=== PATIENT | female | born 1945 | race Caucasian/White ===

== ENCOUNTER 2020-04-20 09:03 | Outpatient (CLI) | payer MEDICARE, SELFPAY ==
[2020-04-20 09:58] LABS: Alanine Aminotransferase 15 U/L (4-35); Albumin Level 4.3 g/dL (3.5-5.1); Alkaline Phosphatase 92 U/L (38-126); Aspartate Amino Transferase 23 U/L (14-36); Bilirubin,Total 0.3 mg/dL (0.2-1.3); Blood Urea Nitrogen 35 mg/dL (7-17); Calcium 9.1 mg/dL (8.4-10.2); Carbon Dioxide 27 mmol/L (22-30); Chloride 105 mmol/L (98-107); Cholesterol 179 mg/dL (0-200); Estimated Glomerular Filt Rate 44; Glucose 124 mg/dL (65-105); HDL Direct 24 mg/dL; Potassium 4.4 mmol/L (3.4-5.0); Sodium 140 mmol/L (137-145); Triglycerides 248 mg/dL (<150)
[2020-04-20 10:08] LABS: LDL Cholesterol Direct 96 mg/dL
[2020-04-20 19:12] LABS: Hemoglobin A1C 5.8 % (<5.7)
[2020-04-20 19:59] LABS: Total Triiodothyronine (T3) 1.15 NG/ML (0.97-1.69)
[2020-04-23 03:43] LABS: Triiodothyronine T3 Free 2.6 pg/mL (2.3-4.2)
== END 2020-04-20 09:04 | disposition home or self-care (01) ==
PROVIDERS: PCP Family Medicine; Visit Provider Family Medicine
DX: E03.9 Hypothyroidism, unspecified (principal); E78.2 Mixed hyperlipidemia; I10 Essential (primary) hypertension; R73.09 Other abnormal glucose
CPT/HCPCS: 36415; 80053; 80061; 83036; 84436; 84443; 84480; 84481

== ENCOUNTER 2021-01-27 08:36 | Outpatient (CLI) | payer MEDICARE, SELFPAY ==
[2021-01-27 09:52] LABS: Alanine Aminotransferase 16 U/L (4-35); Albumin Level 4.4 g/dL (3.5-5.1); Alkaline Phosphatase 69 U/L (38-126); Anion Gap 8 mmol/L (8-16); Aspartate Amino Transferase 29 U/L (14-36); Bilirubin,Total 0.6 mg/dL (0.2-1.3); Blood Urea Nitrogen 39 mg/dL (7-17); Calcium 9.6 mg/dL (8.4-10.2); Carbon Dioxide 27 mmol/L (22-30); Chloride 106 mmol/L (98-107); Cholesterol 179 mg/dL (0-200); Estimated Glomerular Filt Rate 54; Glucose 125 mg/dL (65-105); HDL Direct 34 mg/dL; Potassium 5.2 mmol/L (3.4-5.0); Sodium 141 mmol/L (137-145); Triglycerides 170 mg/dL (<150)
[2021-01-27 10:02] LABS: LDL Cholesterol Direct 95 mg/dL
[2021-01-27 10:35] LABS: Free T4 Free Thyroxine 1.43 ng/mL (0.78-2.19)
== END 2021-01-27 08:37 | disposition home or self-care (01) ==
PROVIDERS: PCP Family Medicine; Visit Provider Family Medicine
DX: E03.9 Hypothyroidism, unspecified (principal); E78.2 Mixed hyperlipidemia; I10 Essential (primary) hypertension
CPT/HCPCS: 36415; 80053; 80061; 84439; 84443

== ENCOUNTER 2021-03-19 14:46 | Outpatient (CLI) | payer MEDICARE, SELFPAY ==
[2021-03-19 15:57] LABS: Anion Gap 5 mmol/L (8-16); Blood Urea Nitrogen 24 mg/dL (7-17); Calcium 9.7 mg/dL (8.4-10.2); Carbon Dioxide 33 mmol/L (22-30); Chloride 104 mmol/L (98-107); Estimated Glomerular Filt Rate 54; Glucose 155 mg/dL (65-105); Potassium 3.9 mmol/L (3.4-5.0); Sodium 142 mmol/L (137-145)
== END 2021-03-19 14:47 | disposition home or self-care (01) ==
PROVIDERS: PCP Family Medicine; Visit Provider Family Medicine
DX: I10 Essential (primary) hypertension (principal)
CPT/HCPCS: 36415; 80048

== ENCOUNTER 2021-08-16 10:08 | Outpatient (CLI) | payer MEDICARE, SELFPAY ==
[2021-08-16 10:31] LABS: Basophils Percent Auto 0.6 % (0.2-1.2); Eosinophils Absolute Auto 0.2 K/mm3 (0-0.3); Eosinophils Percent Auto 2.6 % (0-4.4); Hematocrit 34.8 % (37.0-47.0); Hemoglobin 11.4 g/dL (12.0-15.0); Immature Granulocyte Absolute 0.03 K/mm3 (0.00-0.031); Immature Granulocyte Percent A 0.4 % (0-0.5); Lymphocytes Percent Auto 21.6 % (18.3-44.2); Mean Corpuscular HGB Conc 32.8 g/dl (32-36); Mean Corpuscular Hemoglobin 30.2 pg (26-34); Mean Corpuscular Volume 92.1 fl (80-100); Mean Platelet Volume 9.3 fl (7.4-10.4); Monocytes Absolute Auto 0.4 K/mm3 (0.1-0.6); Monocytes Percent Auto 5.3 % (2.6-8.5); Neutrophils Absolute Auto 4.8 K/mm3 (1.3-6.7); Neutrophils Percent Auto 69.5 % (45.5-73.1); Platelet Count Result 213 k/mm3 (150-375); Red Blood Count 3.78 M/mm3 (4.2-5.4); Red Cell Distribution Width 15.7 % (11.5-14.5)
[2021-08-16 10:59] LABS: Hemoglobin A1C 5.5 % (<5.7)
[2021-08-16 11:29] LABS: Alanine Aminotransferase 16 U/L (4-35); Albumin Level 4.4 g/dL (3.5-5.1); Alkaline Phosphatase 85 U/L (38-126); Anion Gap 11 mmol/L (8-16); Aspartate Amino Transferase 26 U/L (14-36); Bilirubin,Total 0.6 mg/dL (0.2-1.3); Blood Urea Nitrogen 35 mg/dL (7-17); Calcium 9.6 mg/dL (8.4-10.2); Carbon Dioxide 26 mmol/L (22-30); Chloride 105 mmol/L (98-107); Cholesterol 181 mg/dL (0-200); Estimated Glomerular Filt Rate 40; Glucose 123 mg/dL (65-110); HDL Direct 25 mg/dL; Potassium 5.4 mmol/L (3.4-5.0); Sodium 142 mmol/L (137-145); Triglycerides 275 mg/dL (<150); Uric Acid 2.6 mg/dL (2.5-7.5)
[2021-08-16 11:32] LABS: LDL Cholesterol Direct 80 mg/dL
== END 2021-08-16 10:09 | disposition home or self-care (01) ==
LOC: ANHLAB 10:11
PROVIDERS: PCP Family Medicine; Visit Provider Family Medicine
DX: I10 Essential (primary) hypertension (principal); R73.09 Other abnormal glucose; E03.9 Hypothyroidism, unspecified; E78.2 Mixed hyperlipidemia; E79.0 Hyperuricemia without signs of inflammatory arthritis and tophaceous disease
CPT/HCPCS: 36415; 80053; 80061; 83036; 84443; 84550; 85025

== ENCOUNTER → 2021-09-19 15:15 | Outpatient (CLI) | payer MEDICARE, SELFPAY ==
--- NOTE | ~2021-09-19 | MM_ITS ---
EXAMINATION: MM screening laura BI w an HISTORY: Screening mammogram TECHNIQUE: Craniocaudal and mediolateral oblique 3-D tomosynthesis images were obtained and synthetic 2-D images were generated. CAD analysis was submitted and interpreted. COMPARISON: BREAST PARENCHYMAL COMPOSITION: The breasts are almost entirely fatty. FINDINGS: There is no evidence of suspicious mass, calcification, or architectural distortion to sugg est malignancy in either breast. There has been no suspicious interval change. IMPRESSION: 1. No mammographic evidence of malignancy. 2. Recommend routine screening mammography in one year. BI-RADS Category 1: Negative Reviewed, dictated and finalized at location A.
== END ==
PROVIDERS: PCP Family Medicine; Visit Provider Family Medicine
DX: Z12.31 Encounter for screening mammogram for malignant neoplasm of breast (principal)
CPT/HCPCS: 77063; 77067

== ENCOUNTER → 2021-10-11 13:10 | Outpatient (CLI) | payer MEDICARE, SELFPAY ==
--- NOTE | ~2021-10-11 | DEXA_ITS ---
Bone Density Report Name: Briseida Palencia Age: 76 Sex: Female Ethnicity: White Date of : 1945 Indication: postmenopausal; screening for osteoporosis; Referring Provider: WALESKA SALINAS Study: Bone densitometry was performed. Exam Date: October 11, 2021 Accession number: [id number] Bone Density: Region BMD T-score Z-score Classification AP Spine (L2, L3, L4) 1.068 -0.1 2.3 Normal Femoral Neck (Left) 0.713 -1.2 0.8 Osteopenia Total Hip (Left) 0.856 -0.7 1.0 Normal Femoral Neck (Right) 0.774 -0.7 1.4 Normal Total Hip (Right) 0.887 -0.4 1.3 Normal Total Hip Mean 0.872 -0.6 1.2 Normal World Health Organization criteria for BMD impression classify patients as: Normal (T-score at or above -1.0), Osteopenia (T-score between -1.0 and -2.5), or Osteoporosis (T-score at or below -2.5). 10-year Fracture Risk(1): Major Osteoporotic Fracture 9.1% Hip Fracture 1.4% Reported Risk Factors: [place] (), Neck BMD=0.713, BMI=39.1 (1) FRAX(R) Version 3.08. Fracture probability calculated for an untreated patient. Fracture probability may be lower if the patient has received treatment. Previous Exams: Region Exam Age BMD T-score BMD Change BMD Change Date g/cm2 vs Baseline vs Previous AP Spine(L2, L3, L4) 10/11/2021 76 1.068 -0.1 0.011 0.011 03/12/2019 73 1.057 -0.2 Total Hip(Left) 10/11/2021 76 0.856 -0.7 -0.004 -0.004 03/12/2019 73 0.860 -0.7 Total Hip(Right) 10/11/2021 76 0.887 -0.4 0.044* 0.044* 03/12/2019 73 0.844 -0.8 *Denotes significance at 95% confidence level, LSC for AP Spine = 0.022 g/cm2, LSC for Total Hip = 0.027 g/cm2 Clinical Information Provided by Patient: Has used the following medications: Vitamin D, Calcium, MTV, Levothyroxine Patient maximum height was 62.5 Menopause Age: 54 No regular weight bearing exercise Drinks caffeinated beverages Onset of menses at age 15 Number of children 2 Impression: The patient has low bone mass, based on the Left Femoral Neck T-score. The patient has an estimated ten-year risk of hip fracture of 1.4% and an estimated ten-year risk of major fracture of 9.1%, based on the WHO FRAX algorithm. No significant bone loss was observed. Discussion: BONE DENSITY IS LOW AT ONE OR MORE SKELETAL SITES. This patient's lowest T-score is low at one or more skeletal sites. It meets the World Health Organization's
== END ==
PROVIDERS: PCP Family Medicine; Visit Provider Family Medicine
DX: Z78.0 Asymptomatic menopausal state (principal); M85.852 Other specified disorders of bone density and structure, left thigh
CPT/HCPCS: 77080

== ENCOUNTER 2021-11-02 11:39 | Outpatient (CLI) | payer MEDICARE, SELFPAY ==
[2021-11-02 12:00] LABS: Basophils Absolute Auto 0.1 K/mm3 (0.0-0.1); Basophils Percent Auto 0.7 % (0.2-1.2); Eosinophils Absolute Auto 0.3 K/mm3 (0-0.3); Eosinophils Percent Auto 3.4 % (0-4.4); Hematocrit 34.1 % (37.0-47.0); Hemoglobin 11.3 g/dL (12.0-15.0); Immature Granulocyte Absolute 0.02 K/mm3 (0.00-0.031); Immature Granulocyte Percent A 0.2 % (0-0.5); Lymphocytes Percent Auto 20.3 % (18.3-44.2); Mean Corpuscular HGB Conc 33.1 g/dl (32-36); Mean Corpuscular Hemoglobin 29.7 pg (26-34); Mean Corpuscular Volume 89.5 fl (80-100); Mean Platelet Volume 9.7 fl (7.4-10.4); Monocytes Absolute Auto 0.6 K/mm3 (0.1-0.6); Monocytes Percent Auto 6.2 % (2.6-8.5); Neutrophils Absolute Auto 6.1 K/mm3 (1.3-6.7); Neutrophils Percent Auto 69.2 % (45.5-73.1); Platelet Count Result 209 k/mm3 (150-375); Red Blood Count 3.81 M/mm3 (4.2-5.4); Red Cell Distribution Width 15.4 % (11.5-14.5); White Blood Count 8.9 K/mm3 (4.5-10.0)
[2021-11-02 12:14] LABS: Alanine Aminotransferase 15 U/L (4-35); Albumin Level 4.2 g/dL (3.5-5.1); Alkaline Phosphatase 80 U/L (38-126); Anion Gap 9 mmol/L (8-16); Aspartate Amino Transferase 24 U/L (14-36); Bilirubin,Total 0.4 mg/dL (0.2-1.3); Blood Urea Nitrogen 33 mg/dL (7-17); Calcium 9.9 mg/dL (8.4-10.2); Carbon Dioxide 26 mmol/L (22-30); Chloride 104 mmol/L (98-107); Estimated Glomerular Filt Rate 37; Glucose 101 mg/dL (65-110); Potassium 5.3 mmol/L (3.4-5.0); Sodium 139 mmol/L (137-145)
== END 2021-11-02 11:40 | disposition home or self-care (01) ==
LOC: ANHLAB 11:41
PROVIDERS: PCP Family Medicine; Visit Provider Nurse Practitioner Gerontology
DX: E87.5 Hyperkalemia (principal); D64.9 Anemia, unspecified
CPT/HCPCS: 36415; 80053; 85025

== ENCOUNTER 2022-03-05 15:26 | Outpatient (CLI) | payer MEDICARE, SELFPAY ==
--- NOTE | ~2022-03-05 | US_ITS ---
EXAMINATION: US renal BI DATE: 03/05/2022 16:02 INDICATION: Stage IIIb chronic kidney disease TECHNIQUE: Multiple ultrasound grayscale images of the kidneys were obtained. COMPARISON: None. FINDINGS: The right kidney measures 9.9 x 5.2 x 4.3 cm. The left kidney measures 10.4 x 4.1 x 3.9 cm. The kidne ys demonstrate normal echogenicity. There is no hydronephrosis in either kidney. No stones identifie d. The bladder is normal. IMPRESSION: 1. Normal kidneys without hydronephrosis. Reviewed, dictated and finalized at location B.
== END 2022-03-05 15:27 | disposition home or self-care (01) ==
LOC: ANHIMG 15:26
PROVIDERS: PCP Family Medicine; Visit Provider Family Medicine
DX: N18.32 Chronic kidney disease, stage 3b (principal)
CPT/HCPCS: 76775

== ENCOUNTER 2022-06-28 10:12 | Outpatient (CLI) | payer MEDICARE, SELFPAY ==
[2022-06-28 11:11] LABS: Basophils Percent Auto 0.6 % (0.2-1.2); Eosinophils Absolute Auto 0.2 K/mm3 (0-0.3); Eosinophils Percent Auto 3.5 % (0-4.4); Hematocrit 34.8 % (37.0-47.0); Hemoglobin 11.4 g/dL (12.0-15.0); Immature Granulocyte Absolute 0.02 K/mm3 (0.00-0.031); Immature Granulocyte Percent A 0.3 % (0-0.5); Lymphocytes Absolute Auto 1.44 K/mm3 (0.9-3.2); Mean Corpuscular HGB Conc 32.8 g/dl (32-36); Mean Corpuscular Hemoglobin 29.8 pg (26-34); Mean Corpuscular Volume 90.9 fl (80-100); Mean Platelet Volume 10.1 fl (7.4-10.4); Monocytes Absolute Auto 0.4 K/mm3 (0.1-0.6); Monocytes Percent Auto 5.4 % (2.6-8.5); Neutrophils Absolute Auto 4.8 K/mm3 (1.3-6.7); Neutrophils Percent Auto 69.2 % (45.5-73.1); Platelet Count Result 170 k/mm3 (150-375); Red Blood Count 3.83 M/mm3 (4.2-5.4); Red Cell Distribution Width 15.4 % (11.5-14.5); White Blood Count 6.9 K/mm3 (4.5-10.0)
[2022-06-28 11:22] LABS: Alanine Aminotransferase 14 U/L (6-35); Albumin Level 4.3 g/dL (3.5-5.1); Alkaline Phosphatase 92 U/L (38-126); Anion Gap 11 mmol/L (8-16); Aspartate Amino Transferase 19 U/L (14-36); Bilirubin,Total 0.6 mg/dL (0.2-1.3); Blood Urea Nitrogen 41 mg/dL (7-17); Calcium 9.7 mg/dL (8.4-10.2); Carbon Dioxide 24 mmol/L (22-30); Chloride 105 mmol/L (98-107); Cholesterol 178 mg/dL (0-200); Estimated Glomerular Filt Rate 37; Glucose 121 mg/dL (65-110); HDL Direct 28 mg/dL; Potassium 4.4 mmol/L (3.4-5.0); Sodium 140 mmol/L (137-145); Triglycerides 229 mg/dL (<150); Uric Acid 2.9 mg/dL (2.5-7.5)
[2022-06-28 11:27] LABS: Hemoglobin A1C 5.4 % (<5.7)
[2022-06-28 11:32] LABS: LDL Cholesterol Direct 86 mg/dL
[2022-06-28 11:44] LABS: Free T4 Free Thyroxine 1.47 ng/mL (0.78-2.19)
[2022-06-28 11:53] LABS: Total Triiodothyronine (T3) 1.09 NG/ML (0.97-1.69)
[2022-07-02 16:14] LABS: Vitamin D 1,25 (OH)2 Total 10 pg/mL (18-72); Vitamin D2 1,25 (OH)2 <8 pg/mL; Vitamin D3 1,25 (OH)2 10 pg/mL
== END 2022-06-28 10:13 | disposition home or self-care (01) ==
LOC: ANHLAB 10:15
PROVIDERS: PCP Family Medicine; Visit Provider Family Medicine
DX: E55.9 Vitamin D deficiency, unspecified (principal); E03.9 Hypothyroidism, unspecified; E78.2 Mixed hyperlipidemia; R73.09 Other abnormal glucose; E79.0 Hyperuricemia without signs of inflammatory arthritis and tophaceous disease; I10 Essential (primary) hypertension
CPT/HCPCS: 36415; 80053; 80061; 82652; 83036; 84439; 84443; 84480; 84550; 85025

== ENCOUNTER 2022-11-18 10:57 | Outpatient (CLI) | payer MEDICARE, SELFPAY ==
[2022-11-18 12:01] LABS: Basophils Percent Auto 0.6 % (0.2-1.2); Eosinophils Absolute Auto 0.3 K/mm3 (0-0.3); Eosinophils Percent Auto 3.9 % (0-4.4); Hematocrit 37.8 % (37.0-47.0); Hemoglobin 12.5 g/dL (12.0-15.0); Immature Granulocyte Absolute 0.02 K/mm3 (0.00-0.031); Immature Granulocyte Percent A 0.3 % (0-0.5); Lymphocytes Absolute Auto 1.72 K/mm3 (0.9-3.2); Lymphocytes Percent Auto 24.9 % (18.3-44.2); Mean Corpuscular HGB Conc 33.1 g/dl (32-36); Mean Corpuscular Hemoglobin 30.1 pg (26-34); Mean Corpuscular Volume 91.1 fl (80-100); Mean Platelet Volume 10.1 fl (7.4-10.4); Monocytes Absolute Auto 0.4 K/mm3 (0.1-0.6); Monocytes Percent Auto 5.5 % (2.6-8.5); Neutrophils Absolute Auto 4.5 K/mm3 (1.3-6.7); Neutrophils Percent Auto 64.8 % (45.5-73.1); Platelet Count Result 218 k/mm3 (150-375); Red Blood Count 4.15 M/mm3 (4.2-5.4); Red Cell Distribution Width 14.6 % (11.5-14.5); White Blood Count 6.9 K/mm3 (4.5-10.0)
[2022-11-18 12:13] LABS: Alanine Aminotransferase 18 U/L (6-35); Albumin Level 4.5 g/dL (3.5-5.1); Alkaline Phosphatase 108 U/L (38-126); Anion Gap 8 mmol/L (8-16); Aspartate Amino Transferase 24 U/L (14-36); Bilirubin,Total 0.6 mg/dL (0.2-1.3); Blood Urea Nitrogen 28 mg/dL (7-17); Calcium 9.4 mg/dL (8.4-10.2); Carbon Dioxide 28 mmol/L (22-30); Chloride 105 mmol/L (98-107); Cholesterol 207 mg/dL (0-200); Estimated Glomerular Filt Rate 54; Glucose 120 mg/dL (65-110); HDL Direct 31 mg/dL; Sodium 141 mmol/L (137-145); Triglycerides 236 mg/dL (<150)
[2022-11-18 12:24] LABS: LDL Cholesterol Direct 104 mg/dL
[2022-11-18 12:51] LABS: Total Triiodothyronine (T3) 1.05 NG/ML (0.97-1.69)
[2022-11-22 09:59] LABS: Vitamin D 1,25 (OH)2 Total 28 pg/mL (18-72); Vitamin D2 1,25 (OH)2 <8 pg/mL; Vitamin D3 1,25 (OH)2 28 pg/mL
== END 2022-11-18 10:58 | disposition home or self-care (01) ==
LOC: ANHLAB 10:59
PROVIDERS: PCP Family Medicine; Visit Provider Family Medicine
DX: E03.9 Hypothyroidism, unspecified (principal); E78.2 Mixed hyperlipidemia; I10 Essential (primary) hypertension; E55.9 Vitamin D deficiency, unspecified
CPT/HCPCS: 36415; 80053; 80061; 82652; 84439; 84443; 84480; 85025

== ENCOUNTER 2023-06-11 10:00 | Outpatient (CLI) | payer MEDICARE, SELFPAY ==
[2023-06-11 10:40] LABS: Basophils Percent Auto 0.4 % (0.2-1.2); Eosinophils Absolute Auto 0.2 K/mm3 (0-0.3); Eosinophils Percent Auto 3.4 % (0-4.4); Hematocrit 35.2 % (37.0-47.0); Hemoglobin 11.5 g/dL (12.0-15.0); Immature Granulocyte Absolute 0.02 K/mm3 (0.00-0.031); Immature Granulocyte Percent A 0.3 % (0-0.5); Lymphocytes Percent Auto 22.1 % (18.3-44.2); Mean Corpuscular HGB Conc 32.7 g/dl (32-36); Mean Corpuscular Hemoglobin 30.6 pg (26-34); Mean Corpuscular Volume 93.6 fl (80-100); Mean Platelet Volume 10.3 fl (7.4-10.4); Monocytes Absolute Auto 0.4 K/mm3 (0.1-0.6); Monocytes Percent Auto 5.4 % (2.6-8.5); Neutrophils Absolute Auto 4.6 K/mm3 (1.3-6.7); Neutrophils Percent Auto 68.4 % (45.5-73.1); Platelet Count Result 183 k/mm3 (150-375); Red Blood Count 3.76 M/mm3 (4.2-5.4); Red Cell Distribution Width 14.9 % (11.5-14.5); White Blood Count 6.8 K/mm3 (4.5-10.0)
[2023-06-11 10:55] LABS: Alanine Aminotransferase 19 U/L (6-35); Albumin Level 4.4 g/dL (3.5-5.1); Alkaline Phosphatase 98 U/L (38-126); Anion Gap 5 mmol/L (8-16); Aspartate Amino Transferase 21 U/L (14-36); Bilirubin,Total 0.5 mg/dL (0.2-1.3); Blood Urea Nitrogen 30 mg/dL (7-17); Calcium 9.5 mg/dL (8.4-10.2); Carbon Dioxide 27 mmol/L (22-30); Chloride 108 mmol/L (98-107); Cholesterol 202 mg/dL (0-200); Estimated Glomerular Filt Rate 54; Glucose 121 mg/dL (65-110); HDL Direct 30 mg/dL; Potassium 4.7 mmol/L (3.4-5.0); Sodium 140 mmol/L (137-145); Triglycerides 238 mg/dL (<150); Uric Acid 2.2 mg/dL (2.5-7.5)
[2023-06-11 11:01] LABS: LDL Cholesterol Direct 96 mg/dL
[2023-06-11 11:02] LABS: Hemoglobin A1C 5.6 % (<5.7)
[2023-06-11 11:21] LABS: Total Triiodothyronine (T3) 1.07 NG/ML (0.97-1.69)
[2023-06-11 11:31] LABS: Free T4 Free Thyroxine 1.48 ng/mL (0.78-2.19)
[2023-06-15 22:19] LABS: Vitamin D 1,25 (OH)2 Total 32 pg/mL (18-72); Vitamin D2 1,25 (OH)2 <8 pg/mL; Vitamin D3 1,25 (OH)2 32 pg/mL
== END 2023-06-11 10:01 | disposition home or self-care (01) ==
PROVIDERS: PCP Family Medicine; Visit Provider Family Medicine
DX: E79.0 Hyperuricemia without signs of inflammatory arthritis and tophaceous disease (principal); E78.2 Mixed hyperlipidemia; R73.09 Other abnormal glucose; I10 Essential (primary) hypertension; E03.9 Hypothyroidism, unspecified; E55.9 Vitamin D deficiency, unspecified
CPT/HCPCS: 36415; 80053; 80061; 82652; 83036; 84439; 84443; 84480; 84550; 85025

== ENCOUNTER 2023-08-12 00:46 | Day surgery (SDC) | payer MEDICARE, SELFPAY ==
[2023-07-30 12:13] VITALS: BMI 40.6
--- NOTE | 2023-08-11 10:00 | WPDANESEPPF ---
Anes - Initial Pre Proc Eval Procedure: Operation Date: 08/12/23 09:00 Proposed Procedures p Colonoscopy - Osei Cuenca MD Date/Time: 08/11/23 10:00 Surgeon: Osei Cuenca MD Pre Op Diagnosis: other fecal abnormalities Patient Data Age: 78 Gender: F Height: 1.56 m Weight: 99 kg Allergies Allergy/AdvReac Type Severity Reaction Status Date / Time alendronate sodium AdvReac Intermediate muscle ache Verified 08/12/23 07:49 liothyronine [From Cytomel] AdvReac Intermediate Diarrhea Verified 08/12/23 07:49 Home Medications Medication Instructions Recorded Confirmed Type metronidazole 0.75 % topical cream 1 applic topical BID #45 grams 06/20/22 07/30/23 Rx lisinopril 40 mg tablet 40 mg PO DAILY #100 tabs 05/24/23 07/30/23 Rx cholecalciferol (vitamin D3) 1,250 1,250 mcg PO WEEKLY #14 caps 05/27/23 07/30/23 Rx mcg (50,000 unit) capsule atorvastatin 10 mg tablet 10 mg PO QHS #30 tabs 06/11/23 07/30/23 Rx amlodipine 5 mg tablet 5 mg PO DAILY #90 tabs 06/19/23 07/30/23 Rx carvedilol 3.125 mg tablet See Rx Instructions .Route 06/19/23 07/30/23 Rx .COMPLEX #180 tabs furosemide 20 mg tablet 20 mg PO QAM #90 tabs 06/19/23 07/30/23 Rx allopurinol 300 mg tablet 300 mg PO DAILY #90 tabs 07/01/23 07/30/23 Rx levothyroxine 75 mcg tablet 75 mcg PO DAILY 07/30/23 07/30/23 History Patient hx anesthesia problems: none Family hx anesthesia problems: none Results Review: All pre-operative results and documents have been reviewed as part of the pre-operative evaluation. [facility] Past Medical History Medical History (Updated 08/11/23 @ 10:01 by Farooq Almanza DO) Benign essential HTN Cataract Chronic anemia Chronic kidney disease, stage 3, mod decreased GFR DISH (diffuse idiopathic skeletal hyperostosis) Excess ear wax Gout Granulomatous lung disease Histoplasmosis History of stress test Hypothyroidism (acquired) Left shoulder pain Mixed hyperlipidemia Venous insufficiency (chronic) (peripheral) Surgical History Surgical History H/O partial thyroidectomy History of cataract surgery 2019 Family History Family History Mother Patient's mother is in good health Father Patient's father is , Onset Age: 60 Sibling Patient's sister is in good health Patient's brother is in good health Other Emphysema lung Heart disease Hypertension Social History Social History (Updated 05/27/23 @ 13:21 by Viviana Shea) Social History: Smoking status: Never smoker Second hand tobacco smoke exposure: No Alcohol intake: current Drinks per week: 1 Alcohol use details: Occasionally Substance use: never Substance use type: does not use Lack of Transportation: No Lack of Food: Never True Current Housing: I Have Housing Concerned About Future Housing: No Difficulty Paying Gas/Electric Bills: No Difficulty Paying for Meds: No Currently Unemployed: YES Education: Decline to Answer Difficulty w/ Childcare or Family Care: No Living arrangements: with family Occupation/Education: retired Gender identity (if verbalized by the patient): Female Sexual Orientation (if Verbalized by the Patient): Straight or Heterosexual Spiritual care concerns: No Anes - Eval Final PreProcedure Day of Procedure 08/11/23 10:00 Patient weight: morbidly obese Heart: regular rate and rhythm Lungs: clear to auscultation Airway: Mallampati scale class II Neurological: alert and oriented Last oral intake: >/= 8 hours ASA classification: III Emergent: no Anesthetic plan: proceed Anesthesia type and monitoring: general GIVS and standard monitoring Results Review: All pre-operative results and documents have been reviewed as part of the pre-operative evaluation. Informed Consent: The patient's anesthetic plan and its atten
[2023-08-12 07:49] VITALS: BP 135/70; PULSE 86; RESP 16; TEMP 36.3; O2SAT 100
[2023-08-12] MEDS: LACTATED RINGERS 1,000 ML 150 ML IV CONT (08:08)
--- NOTE | 2023-08-12 08:49 | PM.HPGS ---
History of Present Illness History of Present Illness Consent: Risks, benefits, and alternatives have been discussed and questions answered. Patient agrees to proceed with procedure. Chief complaint: other fecal abnormalities Narrative: Briseida Palencia is a 78 year old female here because + cologuard, had colonoscopy more than 10 years ago Review of Systems Constitutional: Constitutional: Denies headache(s) and Denies weakness Eyes: Eyes: Denies blurry vision ENT: Reports Normal hearing present, Denies headache(s) and Denies neck pain Cardiovascular: Cardiovascular: Denies chest pain and Denies dyspnea Respiratory: Respiratory: Denies dyspnea Gastrointestinal: Gastrointestinal: Reports no additional gastrointestinal complaints Genitourinary: Genitourinary: Denies dysuria Musculoskeletal: Musculoskeletal: Denies neck pain Integumentary/Breasts: Skin/Breast: Denies dry skin Neurologic: Reports Normal hearing present, Denies headache(s) and Denies weakness Psychiatric: Psychiatric: Denies anxiety Endocrine: Endocrine: Denies change in body appearance Hematologic/Lymphatic: Hematologic/Lymphatic: Denies easy bleeding Allergic/Immunologic: Allergic/Immunologic: Denies urticaria PMFSH Past Medical History Medical History (Updated 08/12/23 @ 08:50 by Osei Cuenca MD) Benign essential HTN Cataract Chronic anemia Chronic kidney disease, stage 3, mod decreased GFR DISH (diffuse idiopathic skeletal hyperostosis) Excess ear wax Gout Granulomatous lung disease Histoplasmosis History of stress test Hypothyroidism (acquired) Left shoulder pain Mixed hyperlipidemia Positive colorectal cancer screening using Cologuard test Venous insufficiency (chronic) (peripheral) Surgical History Surgical History H/O partial thyroidectomy History of cataract surgery 2019 Family History Family History Mother Patient's mother is in good health Father Patient's father is , Onset Age: 60 Sibling Patient's sister is in good health Patient's brother is in good health Other Emphysema lung Heart disease Hypertension Social History Social History (Updated 05/27/23 @ 13:21 by Viviana Shea) Social History: Smoking status: Never smoker Second hand tobacco smoke exposure: No Alcohol intake: current Drinks per week: 1 Alcohol use details: Occasionally Substance use: never Substance use type: does not use Lack of Transportation: No Lack of Food: Never True Current Housing: I Have Housing Concerned About Future Housing: No Difficulty Paying Gas/Electric Bills: No Difficulty Paying for Meds: No Currently Unemployed: YES Education: Decline to Answer Difficulty w/ Childcare or Family Care: No Living arrangements: with family Occupation/Education: retired Gender identity (if verbalized by the patient): Female Sexual Orientation (if Verbalized by the Patient): Straight or Heterosexual Spiritual care concerns: No Meds Home Medications and Allergies Home Medications Medication Instructions Recorded Confirmed Type metronidazole 0.75 % topical cream 1 applic topical BID #45 grams 06/20/22 07/30/23 Rx lisinopril 40 mg tablet 40 mg PO DAILY #100 tabs 05/24/23 07/30/23 Rx cholecalciferol (vitamin D3) 1,250 1,250 mcg PO WEEKLY #14 caps 05/27/23 07/30/23 Rx mcg (50,000 unit) capsule atorvastatin 10 mg tablet 10 mg PO QHS #30 tabs 06/11/23 07/30/23 Rx amlodipine 5 mg tablet 5 mg PO DAILY #90 tabs 06/19/23 07/30/23 Rx carvedilol 3.125 mg tablet See Rx Instructions .Route 06/19/23 07/30/23 Rx .COMPLEX #180 tabs furosemide 20 mg tablet 20 mg PO QAM #90 tabs 06/19/23 07/30/23 Rx allopurinol 300 mg tablet 300 mg PO DAILY #90 tabs 07/01/23 07/30/23 Rx levothyroxine 75 mcg tablet 75 mcg PO DAILY 07/30/23 07/30/23 History All
[2023-08-12 09:23] VITALS: BP 81/46; PULSE 61; RESP 16; O2SAT 96
[2023-08-12 09:33] VITALS: BP 82/47; PULSE 60; RESP 21; O2SAT 96
[2023-08-12 09:43] VITALS: BP 100/59; PULSE 60; RESP 14; O2SAT 95
== END 2023-08-12 09:50 | disposition home or self-care (01) ==
PROVIDERS: PCP Family Medicine; Visit Provider Internal Medicine Gastroenterology
PROC: 0DJD8ZZ Inspection of Lower Intestinal Tract, Via Natural or Artificial Opening Endoscopic (ICD-10-PCS; CPT 45378; principal; 2023-08-12 09:00)
DX: R19.5 Other fecal abnormalities (principal); D12.2 Benign neoplasm of ascending colon; K57.30 Diverticulosis of large intestine without perforation or abscess without bleeding; K64.8 Other hemorrhoids; I12.9 Hypertensive chronic kidney disease with stage 1 through stage 4 chronic kidney disease, or unspecified chronic kidney disease; N18.30 Chronic kidney disease, stage 3 unspecified; D64.9 Anemia, unspecified; M48.10 Ankylosing hyperostosis [Forestier], site unspecified; M10.9 Gout, unspecified; E89.0 Postprocedural hypothyroidism; E78.2 Mixed hyperlipidemia; I87.2 Venous insufficiency (chronic) (peripheral); E66.01 Morbid (severe) obesity due to excess calories; Z68.41 Body mass index [BMI] 40.0-44.9, adult
CPT/HCPCS: 45385; 88305; J2704; J7120

== ENCOUNTER 2023-11-10 10:28 | Outpatient (CLI) | payer MEDICARE, OTHER, SELFPAY ==
[2023-11-10 11:40] LABS: Alanine Aminotransferase 17 U/L (6-35); Albumin Level 4.2 g/dL (3.5-5.1); Alkaline Phosphatase 112 U/L (38-126); Anion Gap 6 mmol/L (8-16); Aspartate Amino Transferase 22 U/L (14-36); Bilirubin,Total 0.6 mg/dL (0.2-1.3); Blood Urea Nitrogen 37 mg/dL (7-17); Calcium 9.5 mg/dL (8.4-10.2); Carbon Dioxide 26 mmol/L (22-30); Chloride 107 mmol/L (98-107); Estimated Glomerular Filt Rate 48; Glucose 113 mg/dL (65-110); Potassium 4.7 mmol/L (3.4-5.0); Sodium 139 mmol/L (137-145)
== END 2023-11-10 10:29 | disposition home or self-care (01) ==
LOC: ANHLAB 10:31
PROVIDERS: PCP Family Medicine; Visit Provider Family Medicine
DX: I10 Essential (primary) hypertension (principal)
CPT/HCPCS: 36415; 80053

== ENCOUNTER 2024-03-09 14:14 | Outpatient (CLI) | payer MEDICARE, OTHER, SELFPAY ==
[2024-03-09 15:00] LABS: Alanine Aminotransferase 18 U/L (6-35); Albumin Level 4.6 g/dL (3.5-5.1); Alkaline Phosphatase 106 U/L (38-126); Anion Gap 9 mmol/L (4-12); Aspartate Amino Transferase 22 U/L (14-36); Bilirubin,Total 0.7 mg/dL (0.2-1.3); Blood Urea Nitrogen 30 mg/dL (7-17); Carbon Dioxide 26 mmol/L (22-30); Chloride 108 mmol/L (98-107); Estimated Glomerular Filt Rate 48; Glucose 111 mg/dL (65-110); Potassium 4.4 mmol/L (3.4-5.0); Sodium 143 mmol/L (137-145)
[2024-03-09 15:30] LABS: Thyroid Stimulating Hormone 0.326 uIU/mL (0.465-4.680)
[2024-03-09 16:37] LABS: Free T4 Free Thyroxine 1.65 ng/mL (0.78-2.19)
== END 2024-03-09 14:15 | disposition home or self-care (01) ==
PROVIDERS: PCP Family Medicine; Visit Provider Family Medicine
DX: E03.9 Hypothyroidism, unspecified (principal); I10 Essential (primary) hypertension
CPT/HCPCS: 36415; 80053; 84439; 84443

== ENCOUNTER 2024-10-13 10:48 | Outpatient (CLI) | payer MEDICARE, OTHER, SELFPAY ==
[2024-10-13 11:17] LABS: Basophils Absolute Auto 0.1 K/mm3 (0.0-0.1); Basophils Percent Auto 0.8 % (0.2-1.2); Eosinophils Absolute Auto 0.3 K/mm3 (0-0.3); Hematocrit 36.3 % (37.0-47.0); Hemoglobin 11.9 g/dL (12.0-15.0); Immature Granulocyte Absolute 0.03 K/mm3 (0.00-0.031); Immature Granulocyte Percent A 0.5 % (0-0.5); Lymphocytes Absolute Auto 1.46 K/mm3 (0.9-3.2); Mean Corpuscular HGB Conc 32.8 g/dl (32-36); Mean Corpuscular Hemoglobin 31.5 pg (26-34); Mean Platelet Volume 10.1 fl (7.4-10.4); Monocytes Absolute Auto 0.4 K/mm3 (0.1-0.6); Monocytes Percent Auto 5.6 % (2.6-8.5); Neutrophils Absolute Auto 4.4 K/mm3 (1.3-6.7); Neutrophils Percent Auto 66.1 % (45.5-73.1); Platelet Count Result 155 k/mm3 (150-375); Red Blood Count 3.78 M/mm3 (4.2-5.4); Red Cell Distribution Width 14.8 % (11.5-14.5); White Blood Count 6.6 K/mm3 (4.5-10.0)
[2024-10-13 11:27] LABS: Alanine Aminotransferase 17 U/L (6-35); Albumin Level 4.3 g/dL (3.5-5.1); Alkaline Phosphatase 115 U/L (38-126); Anion Gap 7 mmol/L (4-12); Aspartate Amino Transferase 23 U/L (14-36); Bilirubin,Total 0.7 mg/dL (0.2-1.3); Blood Urea Nitrogen 43 mg/dL (7-17); Calcium 9.5 mg/dL (8.4-10.2); Carbon Dioxide 26 mmol/L (22-30); Chloride 110 mmol/L (98-107); Cholesterol 152 mg/dL (0-200); Estimated Glomerular Filt Rate 36; Glucose 128 mg/dL (65-110); HDL Direct 33 mg/dL; Potassium 4.6 mmol/L (3.4-5.0); Sodium 143 mmol/L (137-145); Triglycerides 241 mg/dL (<150)
[2024-10-13 11:38] LABS: LDL Cholesterol Direct 59 mg/dL
[2024-10-13 11:53] LABS: Hemoglobin A1C 5.8 % (<5.7)
[2024-10-13 11:56] LABS: Thyroid Stimulating Hormone 0.294 uIU/mL (0.465-4.680)
[2024-10-13 12:11] LABS: Free T4 Free Thyroxine 1.31 ng/mL (0.78-2.19)
[2024-10-14 12:05] LABS: T3 Free 2.8 pg/mL (2.3-4.2)
== END 2024-10-13 10:49 | disposition home or self-care (01) ==
PROVIDERS: PCP Family Medicine; Referring Provider Physician Assistant; Visit Provider Student in an Organized Health Care Education/Training Program
DX: E03.9 Hypothyroidism, unspecified (principal); R73.09 Other abnormal glucose; I10 Essential (primary) hypertension; E78.5 Hyperlipidemia, unspecified
CPT/HCPCS: 36415; 80053; 80061; 83036; 84439; 84443; 84480; 85025

== ENCOUNTER 2025-03-07 12:43 | Outpatient (CLI) | payer MEDICARE, OTHER, SELFPAY ==
--- NOTE | 2025-03-07 12:47 | ECHO_ITS ---
Patient Info Name: Briseida Palencia Age: 79 years : 1945 Gender: Female Ht: 61 in Wt: 226 lbs BSA: 2.16 m2 HR: 70 bpm BP: 152 / 75 mmHg Technical Quality: Good Exam Date: 03/07/2025 1:03 PM Exam Location: Echo Lab Patient Status: Outpatient Admit Date: 03/07/2025 Staff Ordering Physician: Lizeth, Malinda Montalvo MD Returned Telephone Equipment Appraiser: Angelina Marcelino RDCS Attending Provider: Lizeth, Malinda Montalvo MD Referring Physician: Lizeth JARRETT; Exam Type: CA echo doppler color flow Study Info Indications R01.1 - Cardiac murmur, unspecified Complete two-dimensional, color flow and Doppler transthoracic echocardiogram is performed. Summary 1. Complete two-dimensional, color flow and Doppler transthoracic echocardiogram is performed. 2. Left ventricular chamber dimension is normal. 3. Left ventricular systolic function is normal, estimated at 60-65%. 4. The left ventricular diastolic function is grade I diastolic dysfunction. 5. E/e' 9 is minimally elevated. 6. Left atrial chamber dimension is mildly enlarged. 7. There is mild aortic valve regurgitation. 8. There is mild mitral valve regurgitation. 9. There is trace tricuspid valve regurgitation. 10. No pulmonary hypertension, estimated pulmonary arterial systolic pressure is 32 mmHg. Left Ventricle E/e' 9 is minimally elevated. Left ventricular chamber dimension is normal. Left ventricular systolic function is normal, estimated at 60-65%. The left ventricular diastolic function is grade I diastolic dysfunction. Right Ventricle Right ventricular chamber dimension is normal. Right ventricular systolic function is normal. Left Atria Left atrial chamber dimension is mildly enlarged. Right Atria Right atrial chamber dimension is normal. Aortic Valve The aortic valve is trileaflet. There is no aortic valve stenosis. There is mild aortic valve regurgitation. Pulmonic Valve There is no pulmonic regurgitation. Mitral Valve There is no mitral valve stenosis. There is mild mitral valve regurgitation. Tricuspid Valve There is trace tricuspid valve regurgitation. No pulmonary hypertension, estimated pulmonary arterial systolic pressure is 32 mmHg. Pericardium/Pleural There is no pericardial effusion. Inferior Vena Cava Normal inferior vena cava with >50% collapse upon inspiration consistent with normal right atrial pressure, 5 mmHg. Aorta The aortic root size at the sinus of Valsalva is normal. Left Ventricular Outflow Tract Name Value Normal LVOT 2D LVOT Diameter 1.9 cm LVOT Doppler LVOT Peak Gradient 5 mmHg LVOT Mean Gradient 3 mmHg LVOT VTI 29 cm LVOT VTI/AV VTI Ratio 0.8 LVOT Stroke Volume 81 ml LVOT CO 5.2 l/min LVOT CI 2.4 l/min/m2 Pulmonic Valve Name Value Normal RVOT Doppler RVOT Peak Gradient 3 mmHg PV Doppler PV Peak Gradient 6 mmHg Mitral Valve Name Value Normal MV Doppler MV Decel [facility] 304 cm/s2 MV PHT 58 ms MV Area (PHT) 3.8 cm2 4.0-5.0 MV Diastolic Function MV E Peak Velocity 60 cm/s MV A Peak Velocity 80 cm/s MV E/A 0.8 MV Decel Time 199 ms Tricuspid Valve Name Value Normal TV Regurgitation Doppler TR Peak Velocity 259 cm/s TR Peak Gradient 25 mmHg Estimated PAP/RSVP RA Pressure 5 mmHg <=5 PA Systolic Pressure 32 mmHg <36 RV Systolic Pressure 32 mmHg <36 Aorta Name Value Normal Ascending Aorta Ao Root Diameter (MM) 3.1 cm Ao Root Diam Index (MM) 1.4 cm/m2 Aortic Valve Name Value Normal AV Doppler AV Peak Velocity 160 cm/s AV Peak Gradient 10 mmHg AV Mean Gradient 6 mmHg AV VTI 37 cm AV Area (Cont Eq VTI) 2.2 cm2 >=3.0 AV Area (Cont Eq Karel) 2.0 cm2 AV Regurgitation 2D LVOT Area 2.8 cm2 AV Regurgitation Doppler AR Decel Time 2,[address] [facility] 177 cm/s2 AR PHT 581 ms Ventricles Name Value Normal LV Dimensions 2D/MM IVS Diastolic Thickness (2D) 1.1 cm 0.6-1.0 IVS Diastole Thickness (MM) 1.1 cm 0.6-0.9 LVID Diastole (2D) 3.8 cm 3.8-5.2 LVID Diastole (MM) 5.5 cm 3.8-5.2 LVIW Diastolic Thickness (2D) 1.0 cm 0.6-0.9 LVIW Diastolic Thickness (MM) 1.3 cm 0.6-0.9 LVID Systole (2D) 3.1 cm 2.2-3.5 LVID Systole (MM) 3.8 cm 2.2-3.5 LVOT Diameter 1.9 cm LV Mass (2D Cubed) 124.96 g 67.00-162.00 LV Mass Index (2D Cubed) 58 g/m2 43-95 Relative Wall Thickness (2D) 0.53 LV Mass (MM Cubed) 281.22 g 67.00-162.00 LV Mass Index (MM Cubed) 130 g/m2 43-95 Relative Wall Thickness (MM) 0.48 LV Fractional Shortening/Ejection Fraction 2D/MM LV Fractional Shortening (2D) 19 % 27-45 LV Fractional Shortening (MM) 32 % 27-45 LV EF (MM Teicholz) 59 % 54-74 LV EF (2D Teicholz) 39 % 54-74 LV Diastolic Volume (4C MOD) 89 ml LV EF (4C MOD) 51 % LV Diastolic Volume (2C MOD) 96 ml LV EF (2C MOD) 64 % LV Diastolic Volume (BP MOD) 93 ml 46-106 LV Diastolic Volume Index (BP MOD) 43 ml/m2 29-61 LV Systolic Volume (BP MOD) 40 ml 14-42 LV Systolic Volume Index (BP MOD) 19 ml/m2 8-24 LV EF (BP MOD) 57 % 54-74 LV Diastolic Length (4C) 8.2 cm LV Systolic Length (4C) 7.2 cm LV Stroke Volume (4C MOD) 45 ml Atria Name Value Normal LA Dimensions LA Dimension (MM) 4.4 cm 2.7-3.8 LA Volume (4C A-L) 57 ml LA Volume (BP A-L) 67 ml RA Dimensions RA Area (4C) 10.6 cm2 <=18.0 Report Signatures
--- OUTSIDE RECORDS SUMMARY | 2025-03-07 14:23 | XMS_ITS | Clinical Summary ---
Author Organization [facility] Address [address] [place] [address] Care Team Providers Care Hoisting Engineer Pile Driving Name Role Phone Malinda Stanley MD Primary Care Provider [phone] Allergies No known active allergies Medications carvedilol 3.125 MG tablet Take 3.125 mg by mouth. 8 Active lisinopril 40 MG tablet Take 40 mg by mouth daily. 4 9 Active multivitamin tablet Take 1 tablet by mouth daily. 4 Active furosemide (LASIX) 20 MG tablet Take 20 mg by mouth daily. Active amLODIPine (NORVASC) 5 MG tablet Take 5 mg by mouth daily. Active levothyroxine (SYNTHROID) 75 MCG tablet Take 75 mcg by mouth every morning. Active allopurinol (ZYLOPRIM) 300 MG tablet Take 300 mg by mouth daily. Active metFORMIN (GLUCOPHAGE) 500 MG tablet Take 500 mg by mouth 2 (two) times daily with meals. Active metroNIDAZOLE (METROCREAM) 0.75 % cream Apply topically 2 (two) times daily. Active vitamin D3, cholecalciferol, 1000 UNIT Tab tablet Take 1 tablet by mouth daily. Active HYDROcodone-acetam inophen (NORCO) 5-325 MG tabletIndications: Acute Pain < 7 Day Supply Take 1 tablet by mouth every 4 (four) hours as needed. Indications: Acute Pain < 7 Day Supply 20 tablet 2 Active ondansetron (ZOFRAN-ODT) 4 MG disintegrating tablet Take 1 tablet (4 mg total) by mouth every 8 (eight) hours as needed. 20 tablet 2 Active Active Problems Problem Noted Date Diagnosed Date Candidal intertrigo 07/30/2019 Class 3 severe obesity due t o excess calories with serious comorbidity and body mass index (BMI) of 40.0 to 44.9 in adult 04/11/2018 S/P partial thyroidectomy 07/18/2017 Fasting hyperglycemia 03/21/2017 Subclinical hyperthyroidism 03/21/2017 Thyromegaly 03/21/2017 Essential hypertension 04/02/2010 Cystocele, midline 11/17/2008 Rosacea 04/29/2007 Osteoarthrosis involving lower leg 11/13/2004 Immunizations Name Administration Dates Next Due Influenza (Generic) 09/06/2015, 1,10/18/2010,08/31/2009,09/01,09/24/2007,09/26/2006 Pneumococcal (Pneumovax 23) 11/05/2012 Tdap (Generic) 07/25/2011 Social History Tobacco Use Types Packs/Day Years Used Date Smoking Tobacco: Never Smokeless Tobacco: Never Alcohol Use Standard Drinks/Week Comments No 0 (1 standard drink = 0.6 oz pur e alcohol) AUDIT-C Answer Date Recorded Frequency of Alcohol Consumption Never 07/30/2019 Average Number of Drinks Not on file 019 Frequency of Binge Drinking Not on file 07/03 Comments No Sex and Gender Information Value Date Recorded Sex Assigned at Not on file Legal Sex Female 11:22 PM CDT Gender Identity Not on file Sexual Orientation Not on file Last Filed Vital Signs Vital Sign Reading Time Taken Comments Blood Pressure 101/62 08/30/2022 2:49 AM CDT Pulse 68 08/30/2022 1:45 AM CDT Temperature 36.4 C (97.6 F) 08/29/2022 9:58 PM CDT Respiratory Rate 13 08/30/2022 1:45 AM CDT Oxygen Saturation 98% 08/30/2022 2:49 AM CDT Inhaled Oxygen Concentration - - Weight 95.7 kg (211 lb) 08/29/2022 11:08 AM CDT Height 157.5 cm (5' 2 ) 08/29/2022 11:08 AM CDT Body Mass Index 38.59 08/29/2022 11:08 AM CDT Plan of Treatment Health Maintenance Due Date Last Done Comments Hepatitis C 1965 Zoster Vaccines (1 of 2) 1997 Annual Medicare Wellness Visit 2012 Dexa Scan (General) 2012 DTaP, Tdap and Td Vaccines (2 - Td or Tdap) 07/25/2021 07/25/2011 RSV Immunization or 60+ Years (1 - 1-dose 75+ series) 2022 COVID-19 Vaccine ( season) 2024 06/13/2022, 10/15/2021, 01/30/2021, Additional history exists Pneumococcal Vaccine: 65+ Years Completed 09/06/2016, 11/05/2012 Meningococcal B Vaccine Aged Out No l onger eligible based on patient's age to complete this topic Meningococcal Vaccine Aged Out No ikm norma eligible based on patient's age to complete this topic RSV Immunizations Under 20 Months Aged Out No longer eligible based on patient's age to complete this topic Insurance MEDICARE [employer] Care Teams Hoisting Engineer Pile Driving Relationship Specialty Start Date End Date Malinda Stanley MD [address] [facility] [address] [facility] [place] [address] [place] [address] PCP - General FAMILY PRACTICE 07/30/19
--- OUTSIDE RECORDS SUMMARY | 2025-03-07 14:23 | XMS_ITS | Referral Summary ---
Author Organization [facility] [place] [address] Address [address] [place] [address] Care Team Providers Care Center Medical Director Name Role Phone Malinda Stanley MD Primary Care Provider Allergies No known active allergies Social History Tobacco Use Types Packs/Day Years Used Date Smoking Tobacco: Never Assessed Personal Safety Answer Date Recorded Getting School Help Needed Not on file 02/14 Comments Unknown Sex and Gender Information Value Date Recorded Sex Assigned at Not on file Legal Sex Female 11:42 AM CDT Gender Identity Not on file Sexual Orientation Not on file Plan of Treatment Not on file Insurance [facility]IC[facility] Care Teams Center Medical Director Relationship Specialty Start Date End Date Malinda Stanley MD [address] [facility] [address] [place] [address] PCP - General Family Medicine 02/14/20
--- OUTSIDE RECORDS SUMMARY | 2025-03-07 14:23 | XMS_ITS | Clinical Summary ---
Author Organization [facility] [place] [address] Address [address] [place] [address] Care Team Providers Care Metal Neutralizer Name Role Phone Malinda Stanley MD Primary [...] of Treatment Not on file Insurance MEDICARE [facility] Care Teams Metal Neutralizer Relationship Specialty Start Date End Date Malinda Stanley MD [address] [facility] [address] [place] [address] PCP - General Family Medicine 02/14/20
== END 2025-03-07 12:44 | disposition home or self-care (01) ==
PROVIDERS: PCP Physician Assistant Medical; Visit Provider Family Medicine
DX: R93.1 Abnormal findings on diagnostic imaging of heart and coronary circulation (principal); R01.1 Cardiac murmur, unspecified
CPT/HCPCS: 93306

== ENCOUNTER 2025-04-21 11:00 | Outpatient (CLI) | payer MEDICARE, OTHER, SELFPAY ==
--- OUTSIDE RECORDS SUMMARY | 2025-04-21 11:04 | XMS_ITS | Referral Summary ---
Author Organization [facility] [place] [address] Address [address] [place] [address] Care Team Providers Care Camera Repairman Name Role Phone Malinda Stanley MD Primary [...] Not on file Insurance MEDICARE [facility] Care Teams Camera Repairman Relationship Specialty Start Date End Date Malinda Stanley MD [address] [facility] [address] [place] [address] PCP - General Family Medicine 02/14/20
--- OUTSIDE RECORDS SUMMARY | 2025-04-21 11:04 | XMS_ITS | Data Portability ---
Author Organization [facility], Main Office Address [address] [place] [address] Assessment No assessment recorded. Plan of Treatment Reminders Order Date Submit Date Provider Last Modified By Organization Details Last Modified Time Details Appointments None recorded. Lab pro BNP (pro B-type natriureti c peptide), serum or plasma 2024 025 [place] [facility], [address], [place], [address], 5 12:41:36 urinalysis , dipstick 2024 025 [email or web address] [id number] PT [facility], [address] [facility], [place], [address], 5 15:59:57 culture, urine 2024 025 [place] [facility], [address], [place], [address], 5 15:36:33 pro BNP (pro B-type natriureti c peptide), serum or plasma 2024 025 [place] [facility], [address], [place], [address], 5 16:12:00 Referral None recorded. Procedures None recorded. Surgeries None recorded. Imaging None recorded. Medication Orders cephalexin 500 mg capsule 2024 025 [facility] [address], [place], [address], 17:09:46 Patient TargetsNo targets recorded. Patient Instructions Encounter Date Encounter Id Patient Instructions Last Modified By Organization Details Last Modified Time 01/04/2025 [id number] Urinary Tract Infection (UTI) in Women: Care Instructions [email or web address] Not available 01/04/2025 15:59:57 01/11/2025 [id number] Urinary Tract Infection (UTI) in Women: Care Instructions [email or web address] Not available 01/11/2025 11:44:20 Diagnoses were discussed with the patient/family at length, all questions were answered and the patient/family verbalized understanding of these instructions and agreed with plan of care. No barriers to care are apparent at this time. Patient/family instructed to let me know if they have any difficulties affording their medications or have any further questions regarding their care Not available 01/11/2025 12:39:07 01/14/2025 [id number] Diagnoses were discussed with the patient/family at length, all questions were answered and the patient/family verbalized understanding of these instructions and agreed with plan of care. No barriers to care are apparent at this time. Patient/family instructed to let me know if they have any difficulties affording their medications or have any further questions regarding their care Not available 01/14/2025 15:36:16 Reason for Referral None Reported. Results Created Date Observation Date Name Description Value Unit Range Abnormal Flag Note LastModifiedBy Organization Detail LastModifiedTime 01/04/20 25 01/07/2025 CULTU RE, URINE culture, urine SPECIM EN NUMBER : [id number] abnormal CULTU RE, URINE SPECI SHAMAR CARTER R: [id number] SOURC E: URINE REPOR T STATU S: FINAL ISOLA TE RAUL R 1: ORGAN ISM: 01/06 >100, 000 CFU/M L GRAM NEGAT DIANA BACIL LI IDENT IFICA TION: 01/07 ESCHE RABIA A COLI E. COLI ----- ----- ----- - AMOXI CILLI N/CA SENSI TIVE <=8/4 AMPIC ILLIN RESIS TANT >16 CEFAZ GONZALO SENSI TIVE 4 CEFTR IAXON E SENSI TIVE <=1 CIPRO FLOXA WARREN INTER MED 0.5 LEVOF LOXAC IN SENSI TIVE <=0.5 NITRO FURAN TOIN SENSI TIVE <=32 PIP/T AZOBA C SENSI TIVE <=16 TOBRA MYCIN SENSI TIVE <=4 TRIME TH/THAKKAR LFA SENSI TIVE <=2/3 8 NOTE: NUMBE RS DISPL AYED REPRE SENT MINIM UM INHIB ITORY NISHA NTRAT ION (VALENTE) WHICH IS EXPRE SSED IN MCG/M L. Testi ng Perfo rmed At: [facility] [address] [place] [address] Labor atory Dire tor: Ruben grossman, M.DTyler CLIA Numbe r [id number] [place] [id number] Not Available [facility] - Main Lab (Blood Not Drawn At This Location) Visit [facility] For Location [facility], [place], [address], 01/07/2025 15:36:33 01/04/20 25 01/04/2025 urina lysis , dipst ick Leukocytes Negati ve Not Available PT [facility] [address] [place] [address], [address], 01/04/2025 15:32:32 01/04/20 25 01/04/2025 urina lysis , dipst ick Nitrite negati ve Not Available PT [facility] [address] [place] [address], [address], 01/04/2025 15:32:32 01/04/20 25 01/04/2025 urina lysis , dipst ick Urobilinogen .2 Not Available PT Is [facility] [address] [place] [address], [address], 01/04/2025 15:32:32 01/04/20 25 01/04/2025 urina lysis , dipst ick Protein 100 Not Available PT [facility] [address] [facility] [place], [address], 01/04/2025 15:32:32 01/04/20 25 01/04/2025 urina lysis , dipst ick pH 6.0 Not Available PT [facility] [address] [facility] [place], [address], 01/04/2025 15:32:32 01/04/20 25 01/04/2025 urina lysis , dipst ick Blood Negati ve Not Available PT [facility] [address] [facility] [place], [address], 01/04/2025 15:32:32 01/04/20 25 01/04/2025 urina lysis , dipst ick Specific [place] 1.015 Not Available PT [facility] [address] [facility], [place], [address], 01/04/2025 15:32:32 01/04/20 25 01/04/2025 urina lysis , dipst ick Ketone Negati ve Not Available PT [facility] [address] [facility] [place], [address], 01/04/2025 15:32:32 01/04/20 25 01/04/2025 urina lysis , dipst ick Bilirubin Negati ve Not Available PT [facility] [address] [facility], [place], [address], 01/04/2025 15:32:32 01/04/20 25 01/04/2025 urina lysis , dipst ick Glucose Negati ve Not Available PT [facility] [address] [facility] [place], [address], 01/04/2025 15:32:32 01/04/20 25 01/04/2025 urina lysis , dipst ick Appearance Clear Not Available PT [facility] [address] , [place], [address], 01/04/2025 15:32:32 01/04/20 25 01/04/2025 urina lysis , dipst ick Color Pale Yellow Not Available PT [facility] [address] , [place], [address], 01/04/2025 15:32:32 01/11/20 25 01/12/2025 NT-IN OBNP nt-probnp 84 pg/mL see below If NT-Pr oBNP is less than 300 PG/ML , heart failu re is unlik patrice for all ages. Age.. ..... ..... ..... Heart Failu re Likel y <50 Years ..... ..... .>=45 0 PG/ML 50-75 Years ..... ....> =900 PG/ML > 75 Years ..... ..... >=180 0 PG/ML Metho dolog y: Nupur Cheryl Elect nupur mil inesc ense Immun oassa y Testi ng Perfo rmed At: [facility] [address] [place] [address] Labor atory Dire tor: Mary Le [id number] [place] [id number] Not Available [facility] - Main Lab (Blood Not Drawn At This Location) Visit [facility] For Location [facility]arest You, [place], [address], 01/12/2025 12:41:35 Result Notes None recorded. Problems Name Problem SNOMED Code Status Onset Date Resolution Date Notes Provider Name and Address Organization Details Recorded Time Chronic kidney disease stage 3 846656114 Active 2024 YASIR Alexandra [facility], [place] - [facility] 02/04/202 5 15:34:31 Essential hypertension 00956704 Active 2024 YASIR Alexandra null, [facility] [place] 5 15:34:42 Thyroid hormone replacement therapy Active 2024 YASIR Alexandra null, [facility] [place] 5 15:34:53 Heart irregularly irregular 866385216 Active 2024 YASIR Alexandra null, [facility] [place] 5 15:35:30 Bilateral lower leg edema 795151296 Active 2024 Chari Jauregui PA-C [address] [place] [address], [address] , [facility] 5 16:09:49 Acute urinary tract infection 606049834 Active 2024 Chari Jauregui PA-C [address] [place] [address], [address] , [facility] 5 16:36:47 Problem Notes None recorded. Procedures Surgical History Date Name Laterality Status Provider Name and Address Organization Details Recorded Time partial substernal thyroidectomy completed YASIR Romero [facility] [place] 01/04/2025 15:38:28 Imaging Results None recorded. Procedure Notes None recorded. Medical Equipment None Reported. Allergies No known drug allergies Medications Name Sig Start Date Stop Date Status Note LastModified by Organization Details LastModified Time celecoxib 200 mg capsule TAKE 1 CAPSULE BY MOUTH TWICE A DAY active Not Available Not Available No t Available atorvastat in 10 mg tablet TAKE 1 TABLET BY MOUTH EVERYDAY AT BEDTIME active Not Available Not Available No t Available amlodipine 5 mg tablet TAKE 1 TABLET BY MOUTH ONCE DAILY active Not Available Not Available No t Available carvedilol 3.125 mg tablet TAKE 1 TABLET BY MOUTH EVERY 12 HOURS WITH A MEAL active Not Available Not Available No t Available levothyrox ine 75 mcg tablet TAKE 1 TABLET BY MOUTH ONCE DAILY. SKIP DOSE ON SUNDAYS active Not Available Not Available No t Available cephalexin 500 mg capsule Take 1 capsule twice a day by oral route as directed for 5 days, for uti. active Not Available Not Available No t Available metronidaz ole 0.75 % topical cream APPLY TOPICALLY TWICE A DAY active Not Available Not Available No t Available allopurino l 300 mg tablet TAKE 1 TABLET BY MOUTH ONCE DAILY active Not Available Not Available No t Available furosemide 20 mg tablet TAKE 1 TABLET BY MOUTH EVERY 12 HOURS active PER PATIENT WAS ADVISED TO TAKE THIS 1 TABLET EVERYOTH R DAY, STATES SHE IS TAKING THIS 1 TABLET DAILY Not Available Not Available Not Available lisinopril 40 mg tablet TAKE 1 TABLET BY MOUTH ONCE DAILY . APPOINTME NT REQUIRED FOR FUTURE REFILLS active Not Available Not Available No t Available amoxicilli n 500 mg-potassi um clavulanat e 125 mg tablet Take 1 tablet every 12 hours by oral route as directed for 5 days, for UTI. active Not Available Not Available No t Available Vitals Date Recorded Body weight Body temperature Heart rate Body mass index (BMI) Body height Respiratory rate Oxygen saturation Oxygen saturation in Arterial blood by Pulse oximetry Systolic blood pressure Diastolic blood pressure Provider Name and Address Organization Details Last Updated DateTime 5 074517. 43 g 98.2 [degF] 68 /min 43.8 kg/m2 154.94 cm 16 /min 98 % 98 % 132 mm[Hg] 64 mm[Hg] VICKY MadrigalBraulio [facility] [place] 5 15:39:53 Date Recorded Body height Body mass index (BMI) Body weight Heart rate Respiratory rate Body temperature Oxygen saturation Oxygen saturation in Arterial blood by Pulse oximetry Systolic blood pressure Diastolic blood pressure Provider Name and Address Organization Details Last Updated DateTime 5 154.94 cm 43.8 kg/m2 059408. 43 g 72 /min 16 /min 97.6 [degF] 98 % 98 % 132 mm[Hg] 70 mm[Hg] Earlene Spring MA [facility] [place] 5 11:26:32 Date Recorded Body height Body mass index (BMI) Body weight Body temperature Respiratory rate Heart rate Oxygen saturation Oxygen saturation in Arterial blood by Pulse oximetry Systolic blood pressure Diastolic blood pressure Provider Name and Address Organization Details Last Updated DateTime 5 154.94 cm 43.5 kg/m2 274892. 25 g 98 [degF] 16 /min 67 /min 97 % 97 % 130 mm[Hg] 64 mm[Hg] JOEL WHITMAN, [facility] BEACHA [facility] [place] 15:37:10 Social History Question Answer Notes LastModified by Organizat ion Details LastModified Time Tobacco Smoking Status Never Smoker Emerald Patrick, [employer] null, [facility] [place] 01/04/2025 15:38:15 What Was The Date Of Your Most Recent Tobacco Screening? 01/14/2025 Information not available 01/14/2025 Sex: Unknown Functional Status None recorded. Mental Status None recorded. Family History Nothing Reported. Medical History Condition Response Thyroid Problems Y Hypertension Y High Cholesterol Y Gynecological HistoryNo gynecological history recorded. Obstetrics History GPAL:G 0 P 0 0 0 0 Past Encounters Encounter ID Performer Location Encounter Start Date Encounter Closed Date Diagnosis/Indication Diagnosis SNOMED-CT Code Diagnosis ICD10 Code Diagnosis Note [id number] Medhat Vences MD Main Office [address] [place] [address] 01/04/2025 15:24:27 01/04/2025 16:39:09 Acute urinary tract infection 910390051 N39.0 No evidence of pyelonephr itis. Will treat with antibiotic s, send urine culture and f/u on cultures. ED/RTC precaution s given. Patient verbalized understand ing of these instructio ns. Bilateral lower leg edema 882685752 R60.0 -patient reports she will be completing labs, has order from PCP back at home-Curre nt Treatment: furosemide 20mg taken every other day-will order BNP-will continue to monitor-wi ll follow up in one week [id number] Medhat Vences MD Main Office [address] [place] [address] 01/11/2025 11:02:19 01/11/2025 12:28:23 Acute urinary tract infection 310157284 N39.0 -Patient reports all symptoms have resolved at this time Bilateral lower leg edema 395488444 R60.0 -Current Treatment: furosemide 20mg taken every other dayGFR: 36 (Oct 2024)-will order BNP-will continue to monitor-wi ll follow up in one week-Patie nt declines to be sent for imaging or sent to cardiologi st at this time-patisalome nt reports she has an echo set up for when she returns home in March Medhat Vences MD Main Office [address] [place] [address] 01/14/2025 15:17:10 01/14/2025 16:14:14 Bilateral lower leg edema 079605283 R60.0 -Current Treatment: furosemide 20mg taken every other day, patient declines to change medication regiment at this timeGFR: 36 (Oct 2024)Revie wed and discussed results with patient-wi ll continue to monitor-tony peres having pedal edema her entire life-Patisalome nt declines to be sent for imaging, obtain labs or sent to cardiologi at this time-brianna nt reports she has an echo set up by her PCP for when she returns home in March Health Concerns Section Related Observation LastModified by Organization Detai ls LastModified Time None Recorded Concern Status LastModified by Organization Details LastModified Time None Recorded Advance Directives Directive None Recorded Payers Insurance Date Sequence Insurance Name Policy Number Policy Segura Covered Member ID Segura Member ID Guarantor Name 01/04/2025 1 MEDICARE [place]: [employer] - [facility] - FQ Briseida Palencia [id number] Briseida Slime 02/02/2025 2 [facility] (MEDICARE SUPPLEMENT) Briseida Palencia [id number] Briseidara Palencia 01/26/2025 [place] Briseida Palencia [id number] Briseida Slime Notes Date Note Type Note Provider Name and Address Organization Details Recorded Time 01/04/2025 text/html 79 yr old Female hx of CKD S3, htn, present today to due having UTI symptoms that have been present for over a week. Patient reports color of urine has change (bright yellow and dark yellow). Patient reports she has lab orders from her PCP back at home and would like to complete labs today.Patient denies any chest pain, chest palpitations or shortness of breath. Chari Jauregui PA-C [address], [place], [address], [facility] - [facility] 01/04/2025 16:12:12 01/11/2025 text/html BP 132/70 pulse 72 temp 97.6 79 yr old female history of CKD S3, htn, present today for a follow up on UTI symptoms states no symptoms at this time. Patient reports taking amoxicillin-potass ium clavulanate 500mg-125mg as directed to treated UTI. Patient reports pedal edema has been present her entire life and increases after long rides in the car. Patient is currently not under the care of a director of category management at this time. Patient denies any chest pain, chest palpitations or shortness of breath. Chari Jauregui PA-C [address] [place] [address], [address], [facility] 01/11/2025 12:39:21 01/14/2025 text/html 79 yr old female history of CKD S3, htn, present today for a follow up on UTI states no symptoms at this time. Patient does report she feels her urine has a sweet odor. Patient reports taking amoxicillin-potass ium clavulanate 500mg-125mg as directed to treated UTI. Patient would like to discuss lab results. Patient is currently not under the care of a director of category management at this time. Patient denies any chest pain, chest palpitations or shortness of breath. Chari Jauregui PA-C [address] [place] [address], [address], [facility] 01/14/2025 15:49:26 OBGyn Episode No OBEpisode recorded.
--- OUTSIDE RECORDS SUMMARY | 2025-04-21 11:04 | XMS_ITS | Clinical Summary ---
Author Organization [facility] [address] [place] [address] Care Team Providers Care Per Diem Nurse Name Role Phone Malinda Stanley MD Primary [...] of Treatment Not on file Insurance MEDICARE [facility] Care Teams Per Diem Nurse Relationship Specialty Start Date End Date Malinda Stanley MD [address] [facility] [address] [place] [address] PCP - General Family Medicine 02/14/20
[2025-04-21 11:22] LABS: Hematocrit 37.9 % (37.0-47.0); Hemoglobin 12.4 g/dL (12.0-15.0); Mean Corpuscular HGB Conc 32.7 g/dl (32-36); Mean Corpuscular Hemoglobin 30.8 pg (26-34); Mean Corpuscular Volume 94.3 fl (80-100); Mean Platelet Volume 9.8 fl (7.4-10.4); Platelet Count Result 204 k/mm3 (150-375); Red Blood Count 4.02 M/mm3 (4.2-5.4); Red Cell Distribution Width 14.6 % (11.5-14.5); White Blood Count 8.2 K/mm3 (4.5-10.0)
[2025-04-21 11:36] LABS: Alanine Aminotransferase 20 U/L (6-35); Albumin Level 4.4 g/dL (3.5-5.1); Alkaline Phosphatase 101 U/L (38-126); Anion Gap 8 mmol/L (4-12); Aspartate Amino Transferase 29 U/L (14-36); Bilirubin,Total 0.8 mg/dL (0.2-1.3); Blood Urea Nitrogen 25 mg/dL (7-17); Calcium 9.3 mg/dL (8.4-10.2); Carbon Dioxide 27 mmol/L (22-30); Chloride 108 mmol/L (98-107); Estimated Glomerular Filt Rate 53; Glucose 131 mg/dL (65-110); Potassium 4.8 mmol/L (3.4-5.0); Sodium 143 mmol/L (137-145)
[2025-04-21 11:43] LABS: Iron 81 ug/dL (37-170)
[2025-04-21 11:47] LABS: Hemoglobin A1C 5.6 % (<5.7)
[2025-04-21 11:52] LABS: Percent Iron Saturation 30 % (20-50)
[2025-04-21 12:07] LABS: Thyroid Stimulating Hormone 0.878 uIU/mL (0.465-4.680)
== END 2025-04-21 11:01 | disposition home or self-care (01) ==
LOC: ANHLAB 11:01
PROVIDERS: PCP Family Medicine; Visit Provider Physician Assistant Medical
DX: E03.9 Hypothyroidism, unspecified (principal); E78.2 Mixed hyperlipidemia; D64.9 Anemia, unspecified; N18.32 Chronic kidney disease, stage 3b; D63.1 Anemia in chronic kidney disease; I87.2 Venous insufficiency (chronic) (peripheral); M25.50 Pain in unspecified joint; M48.10 Ankylosing hyperostosis [Forestier], site unspecified; R73.09 Other abnormal glucose
CPT/HCPCS: 36415; 80053; 82728; 83036; 83540; 83550; 84443; 85027

== ENCOUNTER 2025-07-11 16:33 | Outpatient (CLI) | payer MEDICARE, OTHER, SELFPAY ==
--- OUTSIDE RECORDS SUMMARY | 2025-07-11 16:37 | XMS_ITS | Clinical Summary ---
Author Organization [facility] [address] Address [address] [place] [address] Care Team Providers Care Structurer Name Role Phone Malinda Stanley MD Primary [...] of Treatment Not on file Insurance MEDICARE [facility] Care Teams Structurer Relationship Specialty Start Date End Date Malinda Stanley MD [address] [facility] [address] [place] [address] PCP - General Family Medicine 02/14/20
--- OUTSIDE RECORDS SUMMARY | 2025-07-11 16:37 | XMS_ITS | Clinical Summary ---
Author Organization [facility] Address [address] [place] [address] Care Team Providers Care Shake Maker Name Role Phone Malinda Stanley MD Primary Care Provider [phone] Allergies No known active allergies Medications carvedilol [...] 04/29/2007 Osteoarthrosis involving lower leg 11/13/2004 Immunizations Immunization Administration Dates Next Due Influenza (Generic) 09/06/2015, [...] 11:08 AM CDT Height 157.5 cm (5' 2) 08/29/2022 11:08 AM CDT Body Mass Index [...] 10/15/2021, 01/30/2021, Additional history exists Pneumococcal Vaccine: 50+ Years Completed 09/06/2016, 11/05/2012 Meningococcal B Vaccine Aged Out No l onger eligible based on patient's age to complete this topic Meningococcal Vaccine Aged Out No kim norma eligible based on patient's age to complete this topic RSV Immunizations Under 20 Months Aged Out No longer eligible based on patient's age to complete this topic Insurance MEDICARE [employer] Care Teams Shake Maker Relationship Specialty Start Date End Date Malinda Stanley MD [address] [facility] [address] [facility] [address] [place] [address] PCP - General FAMILY PRACTICE 07/30/19
[2025-07-11 18:22] LABS: Add Urine Microscopic? YES; Appearance Urine Clear (Clear); Glucose Urine UA Negative (Negative); Leukocyte Esterase Ur 1+ LEU/UL (Negative); Need Manual Microscopic Reviewed; Nitrate Urine Negative (Negative); Specific Grav Ur 1.008 (1.001-1.035)
== END 2025-07-11 16:34 | disposition home or self-care (01) ==
LOC: ANHLAB 16:35
PROVIDERS: PCP Family Medicine; Visit Provider Physician Assistant Medical
DX: R10.2 Pelvic and perineal pain (principal); R82.90 Unspecified abnormal findings in urine
CPT/HCPCS: 81001

== ENCOUNTER 2025-11-11 13:04 | Outpatient (CLI) | payer MEDICARE, OTHER, SELFPAY ==
[2025-11-11 14:16] LABS: Hematocrit 37.2 % (37.0-47.0); Hemoglobin 12.5 g/dL (12.0-15.0); Mean Corpuscular HGB Conc 33.6 g/dl (32-36); Mean Corpuscular Hemoglobin 31.5 pg (26-34); Mean Corpuscular Volume 93.7 fl (80-100); Platelet Count Result 191 k/mm3 (150-375); Red Blood Count 3.97 M/mm3 (4.2-5.4); White Blood Count 7.2 K/mm3 (4.5-10.0)
[2025-11-11 14:39] LABS: Alanine Aminotransferase 17 U/L (6-35); Albumin Level 4.4 g/dL (3.5-5.1); Alkaline Phosphatase 113 U/L (38-126); Anion Gap 5 mmol/L (4-12); Aspartate Amino Transferase 27 U/L (14-36); Bilirubin,Total 0.8 mg/dL (0.2-1.3); Blood Urea Nitrogen 35 mg/dL (7-17); Calcium 9.6 mg/dL (8.4-10.2); Carbon Dioxide 28 mmol/L (22-30); Chloride 105 mmol/L (98-107); Cholesterol 147 mg/dL (0-200); Estimated Glomerular Filt Rate 41; Glucose 118 mg/dL (65-110); HDL Direct 28 mg/dL; Potassium 4.8 mmol/L (3.4-5.0); Sodium 138 mmol/L (137-145); Total Protein 7.8 g/dL (6.3-8.2); Triglycerides 243 mg/dL (<150)
[2025-11-11 15:08] LABS: Hemoglobin A1C 6.0 % (<5.7)
[2025-11-11 15:11] LABS: Thyroid Stimulating Hormone 0.655 uIU/mL (0.465-4.680)
[2025-11-11 15:20] LABS: Iron 106 ug/dL (37-170)
[2025-11-11 15:30] LABS: Percent Iron Saturation 41 % (20-50)
[2025-11-11 16:03] LABS: Ferritin 368.00 ng/mL (11.1-264)
== END 2025-11-11 13:05 | disposition home or self-care (01) ==
PROVIDERS: PCP Family Medicine; Visit Provider Physician Assistant Medical
DX: Z00.00 Encounter for general adult medical examination without abnormal findings (principal); I10 Essential (primary) hypertension; N18.32 Chronic kidney disease, stage 3b; E78.2 Mixed hyperlipidemia; D64.9 Anemia, unspecified; E03.9 Hypothyroidism, unspecified; R73.01 Impaired fasting glucose; D63.1 Anemia in chronic kidney disease
CPT/HCPCS: 36415; 80053; 80061; 82728; 83036; 83540; 83550; 84443; 85027